=== PATIENT | female | born 1960 | race Caucasian/White ===

== ENCOUNTER → 2016-08-25 | Outpatient (REF) | payer OTHER ==
[2016-08-25 14:43] LABS: ALBUMIN 2.7 GM/DL (3.2-5.2); ALBUMIN/GLOBULIN RATIO 1.08 (1.00-1.93); BILIRUBIN,TOTAL 0.5 MG/DL (0.2-1.0); CALCIUM LEVEL 7.9 MG/DL (8.5-10.1); CREATININE FOR GFR 1.79 MG/DL (0.55-1.02); GLOMERULAR FILTRATION RATE 31.4 (>51); POTASSIUM SERUM 3.6 MEQ/L (3.5-5.1); TOTAL PROTEIN 5.2 GM/DL (6.4-8.2)
== END ==
LOC: M LAB REF 12:54
PROVIDERS: ATTEND Nurse Practitioner Family
DX: E03.8 Other specified hypothyroidism (principal)

== ENCOUNTER → 2018-04-04 | Outpatient (REF) | payer OTHER | LOC: M LAB REF 13:13 | DX: N39.0 Urinary tract infection, site not specified (principal) ==

== ENCOUNTER → 2018-11-21 | Outpatient (REF) | payer OTHER ==
[2018-11-21 18:26] LABS: BASO # 0.1 10^3/uL (0.0-0.2); BASO % 0.9 % (0.0-1.0); EOS # 0.3 10^3/uL (0.0-0.50); EOS % 4.6 % (0.0-3.0); HEMATOCRIT 44.8 % (36.0-47.0); HEMOGLOBIN 13.6 g/dl (12.0-15.5); LYMPH % 3.9 % (24.0-44.0); MEAN CORPUSCULAR HEMOGLOBIN 26.6 pg (27.0-33.0); MEAN CORPUSCULAR HGB CONC 30.4 g/dl (32.0-36.5); MEAN CORPUSCULAR VOLUME 87.5 fl (80.0-96.0); MONO # 0.3 10^3/uL (0.0-0.8); MONO % 5.9 % (0.0-5.0); NEUTROPHILS # 4.6 10^3/uL (1.8-7.7); PLATELET COUNT, AUTOMATED 167 10^3/uL (150-450); RED BLOOD COUNT 5.12 10^6/uL (4.00-5.40); WHITE BLOOD COUNT 5.4 10^3/uL (4.0-10.0)
[2018-11-21 20:21] LABS: LYMPH # 0.2 10^3/uL (1.5-4.5)
== END ==
LOC: M LAB REF 17:05
PROVIDERS: ATTEND Internal Medicine Nephrology
DX: R82.90 Unspecified abnormal findings in urine (principal)

== ENCOUNTER → 2018-12-19 | Outpatient (REF) ==
--- NOTE | 2018-12-19 11:10 | REP ---
Clinical: Pain and disability. Technique: AP, lateral, bilateral oblique and sunrise views of the right knee. Findings: Osseous structures, joint spaces, and surrounding soft tissues are essentially normal for age. No overt osteoarthritic degenerative changes are appreciated. No acute fracture dislocation. No effusion. Impression: Age-appropriate right knee radiographs. Electronically Signed by Sreedhar Saenz MD 12/19/2018 11:01 A
--- NOTE | 2018-12-19 11:14 | REP ---
Clinical: Pain and disability. Technique: AP, lateral, coned-down views of the lumbosacral spine. Findings: Alignment and lordosis maintained. No acute fracture / compression injury or subluxation. Mild multilevel degenerative changes include endplate sclerosis, minimal/early osteophytosis and mild hypertrophic facet changes. Bulky calcifications suggested within the right kidney. A left ureteral stent extends into the pelvis. Impression: 1. Mild multilevel degenerative spondylosis. Electronically Signed by Sreedhar Saenz MD 12/19/2018 11:05 A
== END ==
LOC: M SMT 10:33
PROVIDERS: ATTEND Internal Medicine
DX: M54.5 Low back pain (principal)

== ENCOUNTER → 2019-06-29 | Outpatient (CLI) | payer OTHER ==
--- NOTE | 2019-06-29 14:36 | REP ---
Clinical: Stage IV chronic renal disease. Comparison: 01/29/2011. Technique: Real time drake scale ultrasound examination using curved array transducer. Findings: The right kidney is not identified and there is a history of complete atrophy. The left kidney measures 14.0 x 4.5 x 6.0 cm and demonstrates moderate hydronephrosis along with multiple nonobstructing intrarenal calculi measuring up to 2.5 cm. The bladder is relatively normal in appearance and ureteral stent is identified. Impression: Left kidney demonstrates chronic hydronephrosis and nonobstructing renal calculi. Distal aspect of the ureteral stent noted in the bladder. Electronically Signed by Sreedhar Saenz MD 06/29/2019 02:27 P
== END ==
LOC: M RAD 12:57
PROVIDERS: ATTEND Nurse Practitioner Family
DX: N18.4 Chronic kidney disease, stage 4 (severe) (principal)

== ENCOUNTER → 2019-10-02 | Outpatient (CLI) | payer OTHER ==
--- NOTE | 2019-10-02 09:44 | REP ---
RENAL ULTRASOUND: Real-time sonographic evaluation of the left kidney is performed. Right kidney is markedly atrophic based on prior studies and cannot be visualized on today's exam. Left kidney measures 13.6 x 4.8 x 6.0 cm. There is moderate hydronephrosis unchanged since the prior study of 06/29/2019. Ureteral stent is seen with the proximal end in the left pelvicaliceal system superiorly and the distal end in the urinary bladder. There is a 1.7 cm cyst in the mid left kidney. The urinary bladder is mildly distended. IMPRESSION: Markedly atrophic right kidney could not be visualized on today's exam. Left kidney demonstrates stable moderate hydronephrosis compared to 06/29/2019. Left ureteral stent appears to be in good position. Electronically Signed by Austin Rand MD 10/02/2019 10:35 A
== END ==
LOC: M RAD 07:54
PROVIDERS: ATTEND Nurse Practitioner Family
DX: N17.9 Acute kidney failure, unspecified (principal); Z96.0 Presence of urogenital implants

== ENCOUNTER → 2020-05-30 | Outpatient (REF) | payer OTHER ==
[2020-05-30 18:17] LABS: IRON (FE) 28 UG/DL (50-170); PERCENT SATURATION 8.2 % (13.2-45.0); TOTAL IRON BINDING CAPACITY 341 UG/DL (250-450)
[2020-05-30 18:26] LABS: VITAMIN B12 LEVEL 189 PG/ML
[2020-05-30 18:27] LABS: FOLATE > 24.0 NG/ML
== END ==
LOC: M LAB REF 17:11
PROVIDERS: ATTEND Nurse Practitioner Family
DX: D64.9 Anemia, unspecified (principal)

== ENCOUNTER 2020-06-10 14:13 | Outpatient (CLI) | payer OTHER ==
[~2020-06-10] VITALS: Ht 157.5 cm; Wt 69.5 kg
[~2020-06-10 14:13] MED LIST: ALBUTEROL SULFATE 2.5 MG/0.5 ML INH NEB SOLN INH PRN; EPINEPHrine INJ 1 MG/ML 1ML AMP IM PRN; diphenhydrAMINE 50MG/ML VIAL (J1200) IV PRN; methylPREDNISolone 125MG 2ML VIAL IV PRN
[2020-06-10] MEDS ORDERED: FERRIC CARBOXYMALTOSE INJ 750 MG in NS 250 ML IV ONE (14:30)
[2020-06-10] MEDS ORDERED: NS 1,000 ML IV SCH (14:30)
[2020-06-10 14:31] VITALS: BP 125/83
[2020-06-10 15:10] VITALS: BP 124/81
[2020-06-10] MEDS ORDERED: BACL1TAB9 PO (15:29)
[2020-06-10] MEDS ORDERED: CALCCAP4 PO (15:29)
[2020-06-10] MEDS ORDERED: OMEP40CA97 PO (15:29)
[2020-06-10] MEDS ORDERED: CALC1CAP31 PO (15:29)
[2020-06-10] MEDS ORDERED: XARE15TA PO (15:29)
[2020-06-10] MEDS ORDERED: SERT-141 PO (15:29)
[2020-06-10] MEDS ORDERED: SIMV20TA22 PO (15:29)
[2020-06-10] MEDS ORDERED: ALLO100T PO (15:29)
[2020-06-10] MEDS ORDERED: K-TA10TA2 PO (15:29)
[2020-06-10] MEDS ORDERED: FOLI20CA PO (15:29)
[2020-06-10] MEDS ORDERED: LEVO112T2 PO (15:29)
[2020-06-10 16:07] VITALS: BP 119/77
[2020-06-10 17:00] VITALS: BP 128/81
[2020-06-10 17:37] VITALS: BP 149/84
== END 2020-06-10 17:40 | disposition home or self-care (01) ==
LOC: M INFU 14:13
PROVIDERS: ATTEND Internal Medicine Nephrology
DX: D50.9 Iron deficiency anemia, unspecified (principal)
CPT/HCPCS: 96365; 96366; J1439

== ENCOUNTER 2020-06-17 13:20 | Outpatient (CLI) | payer OTHER, SELFPAY ==
[~2020-06-17] VITALS: Ht 157.5 cm; Wt 69.5 kg
[~2020-06-17 13:20] MED LIST changes: +ALLO100T PO; +BACL1TAB9 PO; +CALC1CAP31 PO; +CALCCAP4 PO; +FOLI20CA PO; +K-TA10TA2 PO; +LEVO112T2 PO; +OMEP40CA97 PO; +SERT-141 PO; +SIMV20TA22 PO; +XARE15TA PO
[2020-06-17 13:25] VITALS: BP 111/55
[2020-06-17] MEDS ORDERED: FERRIC CARBOXYMALTOSE INJ 750 MG in NS 250 ML IV ONE (13:30)
[2020-06-17] MEDS ORDERED: NS 1,000 ML IV SCH (13:30)
[2020-06-17 15:04] VITALS: BP 104/58
[2020-06-17 15:45] VITALS: BP 106/63
[2020-06-17 16:58] VITALS: BP 123/63
== END 2020-06-17 17:00 | disposition home or self-care (01) ==
LOC: M INFU 13:20
PROVIDERS: ATTEND Internal Medicine Nephrology
DX: D50.9 Iron deficiency anemia, unspecified (principal)
CPT/HCPCS: 96365; 96366; J1439

== ENCOUNTER → 2020-08-28 | Outpatient (REF) | payer OTHER ==
[~2020-08-28] MED LIST changes: -ALBUTEROL SULFATE 2.5 MG/0.5 ML INH NEB SOLN INH PRN; -EPINEPHrine INJ 1 MG/ML 1ML AMP IM PRN; -diphenhydrAMINE 50MG/ML VIAL (J1200) IV PRN; -methylPREDNISolone 125MG 2ML VIAL IV PRN
== END ==
LOC: M LAB REF 17:06
PROVIDERS: ATTEND Nurse Practitioner Family
DX: N39.0 Urinary tract infection, site not specified (principal)

== ENCOUNTER → 2020-11-15 | Outpatient (CLI) | payer OTHER | LOC: M LABSMTC 09:24 | PROVIDERS: ATTEND Urology | DX: N13.30 Unspecified hydronephrosis (principal); Z11.52 Encounter for screening for COVID-19 ==

== ENCOUNTER → 2021-03-20 | Outpatient (REF) | payer OTHER ==
[~2021-03-20] MED LIST changes: +OMEP40CA4 PO; -OMEP40CA97 PO
== END ==
LOC: M LAB REF 12:52
PROVIDERS: ATTEND Nurse Practitioner Family
DX: N39.0 Urinary tract infection, site not specified (principal); E83.42 Hypomagnesemia

== ENCOUNTER → 2021-05-15 | Outpatient (REF) | payer OTHER | LOC: M LAB REF 16:47 | PROVIDERS: ATTEND Nurse Practitioner Family | DX: E83.42 Hypomagnesemia (principal) ==

== ENCOUNTER → 2022-07-29 | Outpatient (REF) | payer OTHER | LOC: M LAB REF 16:56 | PROVIDERS: ATTEND Nurse Practitioner Family | DX: N39.0 Urinary tract infection, site not specified (principal) ==

== ENCOUNTER → 2022-09-08 | Outpatient (CLI) | payer OTHER ==
[~2022-09-08] MED LIST changes: +DIPH-319 PO; +FOLI1TAB11 PO; +LEVO100T5 PO; +MAGN400T33 PO; +POTA10CA33 PO; +ROCA0.5C PO; +SIMV10TA21 PO; +SUMA6INJ25; +ZOLO100T PO
== END ==
LOC: M LABSMTC 09:49
PROVIDERS: ATTEND Anesthesiology
DX: Z01.818 Encounter for other preprocedural examination (principal); Z11.52 Encounter for screening for COVID-19

== ENCOUNTER 2022-09-13 07:01 | Day surgery (SDC) | payer OTHER ==
[~2022-09-13] VITALS: Ht 157.5 cm; Wt 63.4 kg
[~2022-09-13 07:01] MED LIST changes: +ceFAZolin SOD 2 GM in IV 1 EA IV ONE
[2022-09-13] MEDS ORDERED: LR 1,000 ML IV SCH ×2 (07:50→09:55)
[2022-09-13] MEDS ORDERED: LIDOCAINE 2% 100MG/5ML SDV (FOR ANES.) As Ordered ONE (08:18)
[2022-09-13] MEDS ORDERED: ONDANSETRON 4MG 2ML VIAL As Ordered ONE (08:18)
[2022-09-13] MEDS ORDERED: propofoL 200 MG/20 ML VIAL As Ordered ONE ×2 (08:18→08:50)
[2022-09-13] MEDS ORDERED: fentaNYL 100 MCG/2 ML INJECTION As Ordered ONE (08:43)
[2022-09-13] MEDS ORDERED: MIDAZOLAM INJ 2MG/2ML VIAL As Ordered ONE (08:43)
[2022-09-13] MEDS ORDERED: ISOVUE-300 61% 100ML VIAL As Ordered ONE (09:03)
[2022-09-13] MEDS ORDERED: LIDOCAINE 2% 5ML JELLY UROJET As Ordered ONE (09:24)
[2022-09-13] MEDS ORDERED: ACETAMINOPHEN 1000MG 100ML IV BAG As Ordered ONE (09:27)
[2022-09-13] MEDS ORDERED: ePHEDrine SULFATE 25 MG/5 ML(5MG/ML) SYRINGE As Ordered ONE (09:35)
[2022-09-13] MEDS ORDERED: MACR100C43 PO (09:47)
[2022-09-13] MEDS ORDERED: fentaNYL 100 MCG/2 ML INJECTION IV PRN (09:55)
[2022-09-13] MEDS ORDERED: ONDANSETRON 4MG 2ML VIAL IV PRN (09:55)
[2022-09-13] MEDS ORDERED: oxyCODONE 5MG TAB PO PRN (09:55)
[2022-09-13] MEDS ORDERED: HYDROMORPHONE HCL 0.5 MG/ 0.5 ML SYRINGE IV PRN (09:55)
[2022-09-13 12:00] VITALS: BP 114/71
== END 2022-09-13 14:14 | disposition home or self-care (01) ==
LOC: M SDC 07:01
PROVIDERS: ATTEND Urology
DX: N28.89 Other specified disorders of kidney and ureter (principal); N13.30 Unspecified hydronephrosis; E78.00 Pure hypercholesterolemia, unspecified; E03.9 Hypothyroidism, unspecified; K21.9 Gastro-esophageal reflux disease without esophagitis; D50.9 Iron deficiency anemia, unspecified; Z86.718 Personal history of other venous thrombosis and embolism; Z87.440 Personal history of urinary (tract) infections; M19.90 Unspecified osteoarthritis, unspecified site; Z79.899 Other long term (current) drug therapy; Z79.890 Hormone replacement therapy; Z79.01 Long term (current) use of anticoagulants
CPT/HCPCS: 52332; 74420; C2617; J0690; J1100; J2250; J2405; J3010; Q9967

== ENCOUNTER → 2022-12-10 | Outpatient (REF) | payer OTHER ==
[~2022-12-10] MED LIST changes: -K-TA10TA2 PO; +MACR100C43 PO; +POTA-165 PO; -POTA10CA33 PO; +POTA10CA60 PO; -ceFAZolin SOD 2 GM in IV 1 EA IV ONE
[2022-12-10 13:35] LABS: APPEARANCE, URINE HAZY (CLEAR); BACTERIA, URINE AUTO 1+ (NEGATIVE); BILIRUBIN, URINE AUTO NEGATIVE (NEGATIVE); BLOOD, URINE BLOOD 2+ (NEGATIVE); COLOR, URINE YELLOW (YELLOW); GLUCOSE, URINE (UA) AUTO NEGATIVE (NEGATIVE); KETONE, URINE AUTO NEGATIVE (NEGATIVE); LEUKOCYTE ESTERASE, URINE AUTO 3+ (NEGATIVE); MUCUS, URINE SMALL (NEGATIVE); NITRITE, URINE AUTO NEGATIVE (NEGATIVE); PROTEIN, URINE AUTO 1+ mg/dL (NEGATIVE); RBC, URINE AUTO 105 /HPF (0-3); SPECIFIC GRAVITY URINE AUTO 1.009 (1.002-1.035); SQUAMOUS EPITHELIAL CELL UR AU 3 /HPF (0-6); UROBILINOGEN, URINE AUTO 0.2 mg/dL (0.0-2.0); WBC, URINE AUTO 40 /HPF (0-3)
== END ==
LOC: M SMT 13:03
PROVIDERS: ATTEND Urology
DX: R30.0 Dysuria (principal)

== ENCOUNTER 2023-06-02 06:34 | Day surgery (SDC) | payer OTHER ==
[~2023-06-02] VITALS: Ht 157.5 cm; Wt 60.7 kg
[~2023-06-02 06:34] MED LIST changes: -DIPH-319 PO; +DIPH-429 PO; +LORA-243 PO
[2023-06-02] MEDS ORDERED: LR 1,000 ML IV SCH (07:25)
[2023-06-02] MEDS ORDERED: propofoL 200 MG/20 ML VIAL As Ordered ONE (07:51)
[2023-06-02] MEDS ORDERED: LIDOCAINE 2% 100MG/5ML SDV (FOR ANES.) As Ordered ONE (07:51)
[2023-06-02] MEDS ORDERED: MIDAZOLAM INJ 2MG/2ML VIAL As Ordered ONE (07:51)
[2023-06-02] MEDS ORDERED: fentaNYL 100 MCG/2 ML INJECTION As Ordered ONE (07:51)
[2023-06-02] MEDS ORDERED: ceFAZolin SOD 2 GM in IV 1 EA IV ONE (07:55)
[2023-06-02] MEDS ORDERED: ISOVUE-300 61% 100ML VIAL As Ordered ONE (08:58)
[2023-06-02] MEDS ORDERED: FLUC10TA PO (09:34)
[2023-06-02] MEDS ORDERED: MACR100C43 PO (09:34)
[2023-06-02 10:15] VITALS: BP 118/66; TEMP 98.3; O2SAT 98
== END 2023-06-02 10:20 | disposition home or self-care (01) ==
LOC: M SDC 06:34
PROVIDERS: ATTEND Urology
DX: N28.89 Other specified disorders of kidney and ureter (principal); N28.9 Disorder of kidney and ureter, unspecified; N18.30 Chronic kidney disease, stage 3 unspecified; E03.9 Hypothyroidism, unspecified; E78.00 Pure hypercholesterolemia, unspecified; Z79.890 Hormone replacement therapy; Z79.899 Other long term (current) drug therapy; Z79.01 Long term (current) use of anticoagulants; Z90.49 Acquired absence of other specified parts of digestive tract; Z86.718 Personal history of other venous thrombosis and embolism
CPT/HCPCS: 52332; 76000; 87086; C1769; C1894; C2617; J2250; J3010; Q9967

== ENCOUNTER → 2023-08-18 | Outpatient (REF) | payer OTHER ==
[~2023-08-18] MED LIST changes: +FLUC10TA PO
== END ==
LOC: M LABSMT 14:31
PROVIDERS: ATTEND Urology
DX: Z96.0 Presence of urogenital implants (principal)

== ENCOUNTER 2023-10-10 11:58 | Day surgery (SDC) | payer OTHER ==
[~2023-10-10] VITALS: Ht 157.5 cm; Wt 66.0 kg
[~2023-10-10 11:58] MED LIST changes: +ASCO250T20 PO; +CALC600T85 PO; +CYAN-1 PO; +FERR325T19 PO; +HAIRTAB15 PO; +OMEP40CA5 PO; +ROPI5TAB19 PO; +TIZA4CAP PO; +VITA200032 PO; +XARE10TA PO
[2023-10-10] MEDS ORDERED: LR 1,000 ML IV SCH ×2 (12:40→14:45)
[2023-10-10] MEDS ORDERED: propofoL 200 MG/20 ML VIAL As Ordered ONE (13:54)
[2023-10-10] MEDS ORDERED: MIDAZOLAM INJ 2MG/2ML VIAL As Ordered ONE (13:54)
[2023-10-10] MEDS ORDERED: LIDOCAINE 2% INJ 100 MG/5 ML SYRINGE As Ordered ONE (13:55)
[2023-10-10] MEDS ORDERED: fentaNYL 100 MCG/2 ML INJECTION As Ordered ONE (13:55)
[2023-10-10] MEDS: ceFAZolin SOD 2 GM in IV 1 EA IV ONE (14:15)
[2023-10-10] MEDS: ISOVUE-300 61% 100ML VIAL As Ordered ONE (14:30)
[2023-10-10] MEDS ORDERED: oxyCODONE 5MG TAB PO PRN (14:45)
[2023-10-10] MEDS ORDERED: ONDANSETRON 4MG 2ML VIAL IV PRN (14:45)
[2023-10-10] MEDS ORDERED: fentaNYL 100 MCG/2 ML INJECTION IV PRN (14:45)
[2023-10-10] MEDS ORDERED: HYDROMORPHONE HCL 0.5 MG/ 0.5 ML SYRINGE IV PRN (14:45)
[2023-10-10 16:20] VITALS: BP 103/60; TEMP 98.1; O2SAT 95
== END 2023-10-10 16:31 | disposition home or self-care (01) ==
LOC: M SDC 11:58
PROVIDERS: ATTEND Urology
DX: N28.89 Other specified disorders of kidney and ureter (principal); E03.9 Hypothyroidism, unspecified; N18.30 Chronic kidney disease, stage 3 unspecified; E78.00 Pure hypercholesterolemia, unspecified; M10.9 Gout, unspecified; Z79.899 Other long term (current) drug therapy; Z86.718 Personal history of other venous thrombosis and embolism; Z79.01 Long term (current) use of anticoagulants; Z79.890 Hormone replacement therapy; Z90.49 Acquired absence of other specified parts of digestive tract
CPT/HCPCS: 52332; 76000; C2617; J0690; J2250; J3010; Q9967

== ENCOUNTER 2024-02-09 06:28 | Day surgery (SDC) | payer OTHER ==
[~2024-02-09] VITALS: Ht 157.5 cm; Wt 69.9 kg
[~2024-02-09 06:28] MED LIST changes: -POTA10CA60 PO; +POTA10CA70 PO; -SUMA6INJ25; +SUMA6PEN3
[2024-02-09] MEDS ORDERED: LR 1,000 ML IV SCH ×2 (07:25→08:35)
[2024-02-09] MEDS ORDERED: MIDAZOLAM INJ 2MG/2ML VIAL As Ordered ONE (07:35)
[2024-02-09] MEDS ORDERED: LIDOCAINE 2% 100MG/5ML SDV (FOR ANES.) As Ordered ONE (07:35)
[2024-02-09] MEDS ORDERED: propofoL 200 MG/20 ML VIAL As Ordered ONE (07:35)
[2024-02-09] MEDS ORDERED: ACETAMINOPHEN 1000MG 100ML IV BAG As Ordered ONE (07:35)
[2024-02-09] MEDS ORDERED: fentaNYL 100 MCG/2 ML INJECTION As Ordered ONE (07:35)
[2024-02-09] MEDS ORDERED: ONDANSETRON 4MG 2ML VIAL As Ordered ONE (07:36)
[2024-02-09] MEDS: ceFAZolin SOD 2 GM in IV 1 EA IV ONE (08:10)
[2024-02-09] MEDS: ISOVUE-300 61% 100ML VIAL As Ordered ONE (08:21)
[2024-02-09] MEDS ORDERED: oxyCODONE 5MG TAB PO PRN (08:35)
[2024-02-09] MEDS ORDERED: HYDROMORPHONE HCL 0.5 MG/ 0.5 ML SYRINGE IV PRN (08:35)
[2024-02-09] MEDS ORDERED: fentaNYL 100 MCG/2 ML INJECTION IV PRN (08:35)
[2024-02-09] MEDS: ONDANSETRON 4MG 2ML VIAL IV PRN (09:59)
[2024-02-09 12:53] VITALS: BP 133/104; TEMP 98.1; O2SAT 95
== END 2024-02-09 12:53 | disposition home or self-care (01) ==
LOC: M SDC 06:28
PROVIDERS: ATTEND Urology
DX: T83.192A Other mechanical complication of indwelling ureteral stent, initial encounter (principal); N28.89 Other specified disorders of kidney and ureter; Y73.2 Prosthetic and other implants, materials and accessory gastroenterology and urology devices associated with adverse incidents; N18.30 Chronic kidney disease, stage 3 unspecified; E03.9 Hypothyroidism, unspecified; E78.00 Pure hypercholesterolemia, unspecified; Z79.899 Other long term (current) drug therapy; Z79.890 Hormone replacement therapy; Z86.718 Personal history of other venous thrombosis and embolism; Z79.01 Long term (current) use of anticoagulants; Z87.440 Personal history of urinary (tract) infections; Z90.89 Acquired absence of other organs; K21.9 Gastro-esophageal reflux disease without esophagitis; M10.9 Gout, unspecified; Z87.891 Personal history of nicotine dependence
CPT/HCPCS: 52332; 76000; C2617; J0131; J0690; J2250; J2405; J3010; Q9967

== ENCOUNTER 2024-07-19 11:51 | Observation (INO) | payer OTHER ==
[2024-07-09] MEDS: ceFAZolin SOD 2 GM in IV 1 EA IV ONE (06:00)
[~2024-07-19] VITALS: Ht 157.5 cm; Wt 74.9 kg
[~2024-07-19 11:51] MED LIST changes: +ceFAZolin SOD 2 GM in IV 1 EA IV ONE
[2024-07-19] MEDS ORDERED: NS (Normal Saline) 0.9% 1,000 ML IV SCH (13:05)
[2024-07-19] MEDS ORDERED: fentaNYL 100 MCG/2 ML INJECTION As Ordered ONE (14:08)
[2024-07-19] MEDS ORDERED: LIDOCAINE 2% 100MG/5ML SDV (FOR ANES.) As Ordered ONE (14:09)
[2024-07-19] MEDS ORDERED: propofoL 200 MG/20 ML VIAL As Ordered ONE (14:09)
[2024-07-19] MEDS ORDERED: MIDAZOLAM INJ 2MG/2ML VIAL As Ordered ONE (14:09)
[2024-07-19] MEDS ORDERED: ONDANSETRON 4MG 2ML VIAL As Ordered ONE (14:09)
[2024-07-19] MEDS: ceFAZolin SOD 2 GM in IV 1 EA IV ONE (14:20)
[2024-07-19] MEDS ORDERED: oxyCODONE 5MG TAB PO PRN (14:40)
[2024-07-19] MEDS ORDERED: MEPERIDINE 25 MG/ML 1ML VIAL IV PRN (14:40)
[2024-07-19] MEDS ORDERED: fentaNYL 100 MCG/2 ML INJECTION IV PRN (14:40)
[2024-07-19] MEDS: LEVALBUTEROL 1.25MG 0.5ML CONCENTRATE NEB NEB ONE (14:42)
[2024-07-19] MEDS: ISOVUE-300 61% 100ML VIAL As Ordered ONE (14:51)
[2024-07-19] MEDS: ONDANSETRON 4MG 2ML VIAL IV PRN (15:32)
[2024-07-19] MEDS ORDERED: ALBUTEROL SULFATE 2.5MG/0.5ML INH NEB SOLN NEB PRN (15:55)
[2024-07-19 16:30] VITALS: BP 90/55; TEMP 97.8; O2SAT 95
[2024-07-19] MEDS ORDERED: ONDANSETRON 4MG 2ML VIAL IV PRN (16:30)
[2024-07-19] MEDS: SODIUM CHLORIDE 0.9% 1000 ML IV ONE (16:50)
[2024-07-19] MEDS: NS (Normal Saline) 0.9% 1,000 ML IV SCH (16:50)
[2024-07-19 16:54] VITALS: BP 84/52
[2024-07-19] MEDS: NS (Normal Saline) 0.9% 1,000 ML IV ONE (17:13)
[2024-07-19 17:27] LABS: HEMATOCRIT 49.8 % (36.0-47.0); HEMOGLOBIN 16.1 g/dl (12.0-15.5); MEAN CORPUSCULAR HEMOGLOBIN 31.8 pg (27.0-33.0); MEAN CORPUSCULAR HGB CONC 32.3 g/dl (32.0-36.5); MEAN CORPUSCULAR VOLUME 98.2 fl (80.0-96.0); PLATELET COUNT, AUTOMATED 117 10^3/uL (150-450); RED BLOOD COUNT 5.07 10^6/uL (4.00-5.40)
[2024-07-19 17:37] LABS: INR 0.98; PROTHROMBIN TIME 13.3 SECONDS (12.5-14.5)
[2024-07-19 17:52] LABS: CK-MB VALUE MASS 1.7 NG/ML (<3.6)
[2024-07-19 17:53] LABS: MB/CK RELATIVE INDEX 3.69 (< OR =4)
[2024-07-19 17:54] LABS: ALBUMIN 2.5 G/DL (3.2-5.2); BILIRUBIN,TOTAL 0.2 MG/DL (0.3-1.2); CALCIUM LEVEL 8.1 MG/DL (8.3-10.6); CREATININE FOR GFR 1.7 MG/DL (0.55-1.30); GLOMERULAR FILTRATION RATE 32.4 (>45); POTASSIUM SERUM 3.8 MMOL/L (3.5-5.1); TOTAL PROTEIN 4.7 G/DL (5.7-8.2)
[2024-07-19 18:04] LABS: PROCALCITONIN 0.38 ng/ml
[2024-07-19 18:17] VITALS: BP 96/54
[2024-07-19] MEDS: D5W/0.45% SODIUM CHLORIDE 1,000 ML IV SCH (18:18)
[2024-07-19 19:55] VITALS: BP 121/73; TEMP 98.8; O2SAT 94
[2024-07-19 19:57] VITALS: TEMP 98.8
[2024-07-19] MEDS: SERTRALINE 100 MG TAB PO SCH (20:18)
[2024-07-19] MEDS: ACETAMINOPHEN 325 MG TAB PO PRN (23:32)
[2024-07-19 23:34] VITALS: BP 102/58
[2024-07-20 00:19] LABS: CALCIUM LEVEL 7.9 MG/DL (8.3-10.6); CREATININE FOR GFR 1.65 MG/DL (0.55-1.30); GLOMERULAR FILTRATION RATE 33.6 (>45); POTASSIUM SERUM 4.1 MMOL/L (3.5-5.1)
[2024-07-20 04:04] VITALS: BP 125/67; TEMP 98.3; O2SAT 94
[2024-07-20] MEDS: LEVOTHYROXINE 100MCG TABLET (0.1MG) PO SCH (06:01)
[2024-07-20 06:04] LABS: HEMATOCRIT 44.5 % (36.0-47.0); HEMOGLOBIN 14.5 g/dl (12.0-15.5); MEAN CORPUSCULAR HEMOGLOBIN 31.9 pg (27.0-33.0); MEAN CORPUSCULAR HGB CONC 32.6 g/dl (32.0-36.5); PLATELET COUNT, AUTOMATED 113 10^3/uL (150-450); RED BLOOD COUNT 4.54 10^6/uL (4.00-5.40); WHITE BLOOD COUNT 5.1 10^3/uL (4.0-10.0)
[2024-07-20 06:29] LABS: ALBUMIN 2.5 G/DL (3.2-5.2); BILIRUBIN,TOTAL 0.4 MG/DL (0.3-1.2); CALCIUM LEVEL 8.2 MG/DL (8.3-10.6); CREATININE FOR GFR 1.7 MG/DL (0.55-1.30); GLOMERULAR FILTRATION RATE 32.4 (>45); POTASSIUM SERUM 4.1 MMOL/L (3.5-5.1); TOTAL PROTEIN 4.7 G/DL (5.7-8.2)
[2024-07-20] MEDS: MAGNESIUM OXIDE 400MG TAB (MAG-OX) PO SCH (08:06)
[2024-07-20] MEDS: allopurinoL 100 MG TAB PO SCH (08:06)
[2024-07-20] MEDS: FOLIC ACID 1MG TAB PO SCH (08:07)
[2024-07-20] MEDS: SIMVASTATIN 10 MG TAB PO SCH (08:07)
[2024-07-20] MEDS: OMEPRAZOLE 20MG CAP PO SCH (08:07)
[2024-07-20] MEDS: CALCITRIOL 0.25 MCG CAP (S0169) PO SCH (08:07)
[2024-07-20] MEDS: FLUBLOK(EGGFREE) TRIVAL(24-25) VACCINE PF 0.5ML SYRINGE 18YRS & OLDER IM.IMMUN ONE (11:01)
[2024-07-20] MEDS ORDERED: RIVAROXABAN 10MG TAB (XARELTO) PO SCH (18:00)
== END 2024-07-20 12:23 | disposition home or self-care (01) ==
LOC: M SDC 11:51 → M RR INP 11:52 → M MSPAV 16:25
PROVIDERS: ADMIT Internal Medicine; ATTEND Internal Medicine
DX: N28.89 Other specified disorders of kidney and ureter (principal); N13.2 Hydronephrosis with renal and ureteral calculous obstruction; Z53.09 Procedure and treatment not carried out because of other contraindication; J96.01 Acute respiratory failure with hypoxia; N26.1 Atrophy of kidney (terminal); N18.30 Chronic kidney disease, stage 3 unspecified; I95.89 Other hypotension; E03.9 Hypothyroidism, unspecified; Z87.440 Personal history of urinary (tract) infections; Z86.718 Personal history of other venous thrombosis and embolism; K21.9 Gastro-esophageal reflux disease without esophagitis; G25.81 Restless legs syndrome; E53.8 Deficiency of other specified B group vitamins; E83.42 Hypomagnesemia; M10.9 Gout, unspecified; Z90.49 Acquired absence of other specified parts of digestive tract; Z82.5 Family history of asthma and other chronic lower respiratory diseases; Z82.49 Family history of ischemic heart disease and other diseases of the circulatory system; Z79.899 Other long term (current) drug therapy; Z79.890 Hormone replacement therapy; Z79.01 Long term (current) use of anticoagulants
CPT/HCPCS: 36415; 52332; 71045; 80048; 80053; 82550; 82553; 83605; 83880; 84145; 84484; 85027; 85610; 87486; 87581; 87633; 87798; 90471; 90673; 93005; 96361; 97161; J0690; J2250; J2405

== ENCOUNTER → 2024-08-03 | Outpatient (REF) | payer OTHER ==
[~2024-08-03] MED LIST changes: -ceFAZolin SOD 2 GM in IV 1 EA IV ONE
[2024-08-03 14:05] LABS: APPEARANCE, URINE HAZY (CLEAR); BACTERIA, URINE AUTO 1+ (NEGATIVE); BILIRUBIN, URINE AUTO NEGATIVE (NEGATIVE); BLOOD, URINE BLOOD 1+ (NEGATIVE); COLOR, URINE YELLOW (YELLOW); GLUCOSE, URINE (UA) AUTO NEGATIVE (NEGATIVE); KETONE, URINE AUTO NEGATIVE (NEGATIVE); LEUKOCYTE ESTERASE, URINE AUTO 3+ (NEGATIVE); MUCUS, URINE SMALL (NEGATIVE); NITRITE, URINE AUTO NEGATIVE (NEGATIVE); PROTEIN, URINE AUTO 1+ mg/dL (NEGATIVE); RBC, URINE AUTO 7 /HPF (0-3); SQUAMOUS EPITHELIAL CELL UR AU 2 /HPF (0-6); UROBILINOGEN, URINE AUTO 0.2 mg/dL (0.0-2.0); WBC, URINE AUTO 64 /HPF (0-3)
== END ==
LOC: M SMT 13:09
PROVIDERS: ATTEND Urology
DX: N28.89 Other specified disorders of kidney and ureter (principal)

== ENCOUNTER 2024-09-17 06:15 | Day surgery (SDC) | payer OTHER ==
[~2024-09-17] VITALS: Ht 157.5 cm; Wt 71.3 kg
[2024-09-17] VITALS (8 sets, daily range): BP systolic 109–143; BP diastolic 51–87; TEMP 97.9–98.4; O2SAT 90–96
[~2024-09-17 06:15] MED LIST changes: -SUMA6PEN3; +SUMA6PEN5
[2024-09-17] MEDS ORDERED: LR 1,000 ML IV SCH (06:45)
[2024-09-17] MEDS ORDERED: ONDANSETRON 4MG 2ML VIAL As Ordered ONE (07:19)
[2024-09-17] MEDS ORDERED: propofoL 200 MG/20 ML VIAL As Ordered ONE (07:19)
[2024-09-17] MEDS ORDERED: LIDOCAINE 2% 100MG/5ML SDV (FOR ANES.) As Ordered ONE (07:19)
[2024-09-17] MEDS ORDERED: fentaNYL 100 MCG/2 ML INJECTION As Ordered ONE (07:19)
[2024-09-17] MEDS ORDERED: MIDAZOLAM INJ 2MG/2ML VIAL As Ordered ONE (07:19)
[2024-09-17] MEDS: ceFAZolin SOD 2 GM IV ONCE IV ONE (07:30)
[2024-09-17] MEDS: ISOVUE-300 61% 100ML VIAL As Ordered ONE (07:46)
[2024-09-17] MEDS ORDERED: KETOROLAC 30 MG/ML 1ML VIAL As Ordered ONE (07:49)
[2024-09-17] MEDS ORDERED: fentaNYL 100 MCG/2 ML INJECTION IV PRN (07:55)
[2024-09-17] MEDS ORDERED: oxyCODONE 5MG TAB PO PRN (07:55)
[2024-09-17] MEDS ORDERED: HYDROMORPHONE HCL 0.5 MG/ 0.5 ML SYRINGE IV PRN (07:55)
[2024-09-17] MEDS ORDERED: ONDANSETRON 4MG 2ML VIAL IV PRN (07:55)
[2024-09-17] MEDS ORDERED: HOME MED LIST COMPLETE! XX SCH (14:40)
[2024-09-17] MEDS: RIVAROXABAN 10MG TAB (XARELTO) PO SCH (17:25)
[2024-09-17] MEDS: LR 1,000 ML IV SCH (17:25)
[2024-09-17] MEDS: SERTRALINE 100 MG TAB PO SCH (20:52)
[2024-09-17] MEDS: diphenhydrAMINE 25MG CAP PO SCH (20:52)
[2024-09-17] MEDS: SIMVASTATIN 10 MG TAB PO SCH (20:52)
[2024-09-17] MEDS: ACETAMINOPHEN 325 MG TAB PO PRN (22:49)
[2024-09-18 05:00] VITALS: BP 118/76; TEMP 97.9; O2SAT 94
[2024-09-18] MEDS: LEVOTHYROXINE 100MCG TABLET (0.1MG) PO SCH (05:03)
[2024-09-18 08:00] VITALS: BP 115/76; TEMP 97.9; O2SAT 94
[2024-09-18] MEDS: OMEPRAZOLE 20MG CAP PO SCH (09:19)
== END 2024-09-18 13:10 | disposition home or self-care (01) ==
LOC: M SDC 06:15 → M MS5PR 13:00 → M SDC 09-18 13:10
PROVIDERS: ATTEND Urology
DX: N28.89 Other specified disorders of kidney and ureter (principal); N18.30 Chronic kidney disease, stage 3 unspecified; N26.1 Atrophy of kidney (terminal); Z87.440 Personal history of urinary (tract) infections; E03.9 Hypothyroidism, unspecified; E78.00 Pure hypercholesterolemia, unspecified; M10.9 Gout, unspecified; G25.81 Restless legs syndrome; Z79.899 Other long term (current) drug therapy; Z79.01 Long term (current) use of anticoagulants; Z79.890 Hormone replacement therapy; Z86.718 Personal history of other venous thrombosis and embolism; Z90.89 Acquired absence of other organs; K21.9 Gastro-esophageal reflux disease without esophagitis; F41.9 Anxiety disorder, unspecified; F33.9 Major depressive disorder, recurrent, unspecified
CPT/HCPCS: 52332; 76000; C2617; J0690; J1100; J1885; J2250; J2405; J3010; Q9967

== ENCOUNTER 2025-05-30 06:17 | Day surgery (SDC) | payer OTHER ==
[~2025-05-30] VITALS: Ht 157.5 cm; Wt 70.1 kg
[~2025-05-30 06:17] MED LIST changes: +BANO25TA PO; +CALC0.5C6 PO
[2025-05-30] MEDS ORDERED: SCOPOLAMINE 1MG TRANSDERMAL PATCH TOP ONE (06:50)
[2025-05-30] MEDS: LR 1,000 ML IV SCH (06:50)
[2025-05-30] MEDS ORDERED: ISOVUE-300 61% 100 ML VIAL As Ordered ONE (07:12)
[2025-05-30] MEDS ORDERED: MIDAZOLAM INJ 2 MG/2 ML VIAL As Ordered ONE (07:14)
[2025-05-30] MEDS ORDERED: ACETAMINOPHEN 1000MG/100ML IV BAG As Ordered ONE (07:15)
[2025-05-30] MEDS ORDERED: LIDOCAINE 2% 100 MG/5 ML SDV (FOR ANES.) As Ordered ONE (07:15)
[2025-05-30] MEDS ORDERED: ONDANSETRON 4MG/2ML VIAL As Ordered ONE (07:15)
[2025-05-30] MEDS ORDERED: dexAMETHasone 4 MG/ML 1 ML VIAL As Ordered ONE (07:15)
[2025-05-30] MEDS: ceFAZolin SOD 2 GM IV ONCE IV ONE (07:44)
[2025-05-30] MEDS ORDERED: HYDROMORPHONE HCL 0.5 MG/0.5 ML SYRINGE IV PRN (08:00)
[2025-05-30] MEDS ORDERED: ONDANSETRON 4MG/2ML VIAL IV PRN (08:00)
[2025-05-30] MEDS ORDERED: ALBUTEROL SULFATE 2.5 MG/0.5 ML INH CONCENTRATE NEB SOLN As Ordered ONE (08:14)
[2025-05-30] MEDS ORDERED: ALBUTEROL SULFATE 2.5 MG/0.5 ML INH CONCENTRATE NEB SOLN INH ONE (08:15)
[2025-05-30 15:00] VITALS: BP 133/72; TEMP 97.5; O2SAT 95
== END 2025-05-30 18:30 | disposition home or self-care (01) ==
LOC: M SDC 06:17
PROVIDERS: ATTEND Urology
DX: N28.89 Other specified disorders of kidney and ureter (principal); N13.30 Unspecified hydronephrosis; Z87.440 Personal history of urinary (tract) infections; E03.9 Hypothyroidism, unspecified; N18.30 Chronic kidney disease, stage 3 unspecified; G47.30 Sleep apnea, unspecified; M10.9 Gout, unspecified; Z79.01 Long term (current) use of anticoagulants; Z79.899 Other long term (current) drug therapy; Z79.890 Hormone replacement therapy; Z86.718 Personal history of other venous thrombosis and embolism; G25.81 Restless legs syndrome; K21.9 Gastro-esophageal reflux disease without esophagitis
CPT/HCPCS: 52332; 74420; C2617; J0131; J0688; J1100; J2250; J2405; J3010; Q9967